=== PATIENT | female | born 1975 | race Caucasian/White ===

== ENCOUNTER 2018-06-22 15:41 | Emergency (ER) | payer BC, MEDICARE ==
[~2018-06-22] VITALS: Ht 172.7 cm; Wt 133.8 kg
[~2018-06-22 15:41] MED LIST: ADVAIR 250-501 EACH; AZITHROMYCIN250 MG PO; HYDROXYZINE HCL10 MG; HYDROXYZINE HCL10 MG PO; LAMICTAL150 MG PO; LAMICTAL200 MG PO; LATUDA20 MG PO; LATUDA40 MG PO; NASONEX17 GM; PROAIR HFA INH8.5 GM; PROAIR HFA INH8.5 GM INH; SEROQUEL100 MG; SYNTHROID175 MCG PO; SYNTHROID300 MCG PO
[2018-06-22] MEDS ORDERED: KETOROLAC TROMETHAMINE 60 MG/2 ML VIAL IM ONE (16:15)
--- NOTE | 2018-06-22 16:28 | Diagnostic Imaging Report ---
EXAM: KNEE 3VW RT - HOPD DATE: 06/22/2018 12:00 AM INDICATION: Knee pain without trauma COMPARISON: None FINDINGS: Minimal degenerative changes are present. No acute fracture or subluxation is identified. The joint spaces are maintained. Small joint effusion is identified. IMPRESSION: Minimal degenerative change with small effusion. Signed by: Dr. Darian Maher MD on 06/22/2018 4:25 PM
[2018-06-22 16:49] VITALS: BP 110/88
== END 2018-06-22 16:40 | disposition home or self-care (01) ==
LOC: FSED 15:41
DX: S83.411A Sprain of medial collateral ligament of right knee, initial encounter (principal); X50.1XXA Overexertion from prolonged static or awkward postures, initial encounter; Y93.9 Activity, unspecified; Y92.019 Unspecified place in single-family (private) house as the place of occurrence of the external cause
CPT/HCPCS: 73562; 99283; J1885

== ENCOUNTER 2018-07-06 09:24 | Emergency (ER) | payer BC ==
[~2018-07-06] VITALS: Ht 172.7 cm; Wt 133.8 kg
--- OUTSIDE RECORDS SUMMARY | 2018-07-06 09:26 | XMS REPORT ---
Author Author [facility] Address Unknown Phone Unavailable Care Team Providers Care Quarter Seamer Name Role Phone Morro GRAHAM Unavailable Unavailable Problems This patient has no known problems. Allergies, Adverse Reactions, Alerts This patient has no known allergies or adverse reactions. Medications This patient has no known medications. Encounters Start Date/Time End Date/Time Encounter Type Admission Type Attending Clinicians Care Facility Care Department Encounter ID 2017-07-27 10:39:18 2017-07-27 10:39:18 Outpatient [facility] [id number] 2017-06-25 00:00:00 2017-06-25 00:00:00 Outpatient [facility] [id number] 2017-04-27 15:15:41 2017-04-27 15:15:41 Emergency [facility] [id number] 2017-04-22 08:01:27 2017-04-22 08:01:27 Outpatient [facility] [id number] 2017-04-07 08:27:05 2017-04-07 08:27:05 Outpatient [facility] [id number] 2017-04-01 09:51:06 2017-04-01 09:51:06 Outpatient [facility] [id number] 2017-03-19 00:00:00 2017-03-19 00:00:00 Outpatient [facility] [id number] 2017-03-17 12:55:03 2017-03-17 12:55:03 Outpatient [facility] [id number] 2017-03-11 12:35:56 2017-03-11 12:35:56 Outpatient [facility] [id number] 2017-03-11 12:35:51 2017-03-11 12:35:51 Outpatient [facility] [id number] Results Test Description Test Time Test Comments Text Results Atomic Results Result Comments KNEE 3VW RT - HOPD 2018-06-22 16:24:00 [place] [id number] Patient Name: ULISSES DISLA MR #: [id number] : 1975 Age/Sex: 42/F Req #: [id number] [facility] Physician: Ordered by: HIRO GRAHAM MD Report #: [id number] Location: [facility] Room/Bed: Procedure: [id number] HOPD/KNEE 3VW RT - HOPD Exam Date: 06/22/18 Exam Time: 1624 REPORT STATUS: Signed EXAM: KNEE 3VW RT - HOPD DATE: 06/22/2018 12:00 AM INDICATION: Knee pain without trauma COMPARISON: None FINDINGS: Minimal degenerative changes are present. No acute fracture or subluxation is identified. The joint spaces are maintained. Small joint effusion is identified. IMPRESSION: Minimal degenerative change with small effusion. Signed by: Dr. Darian Rivera MD on 06/22/2018 4:25 PM Dictated By: DARIAN RIVERA MD 24 Transcribed By: MARIA VICTORIA on 06/22/181624 COPY TO: HIRO GRAHAM MD
[2018-07-06] MEDS ORDERED: KETOROLAC TROMETHAMINE 60 MG/2 ML VIAL IM ONE (10:00)
[2018-07-06] MEDS ORDERED: ACETAMINOPHEN 325 MG TAB PO ONE (10:00)
[2018-07-06] MEDS ORDERED: ONDANSETRON HCL 4 MG ORAL DISINTEGRATING TAB PO ONE (10:00)
--- NOTE | 2018-07-06 11:21 | Diagnostic Imaging Report ---
Exam: Lumbar spine AP lateral History: Back pain Comparison: None. Findings: No fracture or malalignment. Degenerative disc disease L5-S1. Facet arthrosis L4-5 L5-S1. No abnormal soft tissue calcification or soft tissue defect. Impression: No acute osseous abnormality Signed by: Dr. Troy Hodges M.D. on 07/06/2018 11:18 AM
--- NOTE | 2018-07-06 12:05 | Diagnostic Imaging Report ---
PROCEDURE:SACRUM & COCCYX INDICATION:Pain; status post fall COMPARISON:None. FINDINGS:Angulation and deformity of the coccyx may be related to prior trauma. No definite acute abnormality is identified. CONCLUSION:Deformity of the coccyx. Enrique Quinteros D.O. Dictated by: Enrique Quinteros D.O. on 07/06/2018 at 12:13 Electronically approved by: Enrique Quinteros D.O. on 07/06/2018 at 12:13
[2018-07-06 12:21] VITALS: BP 130/82
== END 2018-07-06 12:26 | disposition home or self-care (01) ==
LOC: ER 09:24
DX: G89.11 Acute pain due to trauma (principal); S30.0XXA Contusion of lower back and pelvis, initial encounter; W18.2XXA Fall in (into) shower or empty bathtub, initial encounter; Y93.E1 Activity, personal bathing and showering; Y92.002 Bathroom of unspecified non-institutional (private) residence as the place of occurrence of the external cause; I10 Essential (primary) hypertension; F17.210 Nicotine dependence, cigarettes, uncomplicated
CPT/HCPCS: 72100; 72220; 99283; J1885

== ENCOUNTER 2019-01-26 09:41 | Emergency (ER) | payer BC ==
[~2019-01-26] VITALS: Ht 172.7 cm; Wt 161.9 kg
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
[2019-01-26] MEDS ORDERED: ALBUTEROL/IPRATROPIUM 3 ML NEB ONE (10:24)
[2019-01-26] MEDS ORDERED: ALBUTEROL/IPRATROPIUM 3 ML NEB NEB ONE (10:30)
--- NOTE | 2019-01-26 10:43 | Diagnostic Imaging Report ---
Examination: Single AP view of the chest. COMPARISON: None. INDICATION: Cough, vomiting DISCUSSION: Lungs are well-inflated and without focal consolidation, pleural effusion, or pneumothorax. Cardiomediastinal contour and pulmonary vasculature are within normal limits for portable, AP technique. No acute osseous abnormality. IMPRESSION: 1. No acute cardiopulmonary abnormalities. Signed by: Dr. Kendrick Duran M.D. on 01/26/2019 10:40 AM
[2019-01-26 11:18] VITALS: BP 121/88
== END 2019-01-26 11:26 | disposition home or self-care (01) ==
LOC: FSED 09:41
DX: R05 Cough (principal); B34.9 Viral infection, unspecified
CPT/HCPCS: 71045; 87400; 99283

== ENCOUNTER 2020-11-26 19:54 | Emergency (ER) | payer BC ==
[~2020-11-26] VITALS: Ht 172.7 cm; Wt 161.9 kg
== END 2020-11-26 21:08 | disposition home or self-care (01) ==
LOC: ER 20:59
DX: R21 Rash and other nonspecific skin eruption (principal); E03.9 Hypothyroidism, unspecified; J45.909 Unspecified asthma, uncomplicated; F31.9 Bipolar disorder, unspecified; G47.30 Sleep apnea, unspecified; Z85.41 Personal history of malignant neoplasm of cervix uteri
CPT/HCPCS: 99282

== ENCOUNTER 2021-10-29 17:27 | Emergency (ER) | payer BC ==
[~2021-10-29] VITALS: Ht 172.7 cm; Wt 161.9 kg
[2021-10-29] MEDS ORDERED: ACETAMINOPHEN 325 MG TAB PO ONE (18:00)
== END 2021-10-29 19:15 | disposition home or self-care (01) ==
LOC: ER 17:36
DX: U07.1 COVID-19 (principal); R50.9 Fever, unspecified; R05.9 Cough, unspecified; E03.9 Hypothyroidism, unspecified; J45.909 Unspecified asthma, uncomplicated; G47.30 Sleep apnea, unspecified; F31.9 Bipolar disorder, unspecified; Z85.41 Personal history of malignant neoplasm of cervix uteri
CPT/HCPCS: 71045; 99283; U0002

== ENCOUNTER 2022-01-20 07:21 | Emergency (ER) | payer BC ==
[~2022-01-20] VITALS: Ht 172.7 cm; Wt 159.2 kg
[2022-01-20] MEDS ORDERED: KETOROLAC TROMETHAMINE 60 MG/2 ML VIAL IM ONE (08:30)
[2022-01-20] MEDS ORDERED: KETOROLAC TROMETHAMINE 60 MG/2 ML VIAL ONE (09:08)
[2022-01-20] MEDS ORDERED: PREDNISONE20 MG PO (09:58)
[2022-01-20] MEDS ORDERED: ULTRAM 50MG50 MG PO (10:03)
== END 2022-01-20 10:31 | disposition home or self-care (01) ==
LOC: FSED 08:13
DX: M25.561 Pain in right knee (principal); M17.11 Unilateral primary osteoarthritis, right knee; M25.551 Pain in right hip; E03.9 Hypothyroidism, unspecified; E66.01 Morbid (severe) obesity due to excess calories; F31.9 Bipolar disorder, unspecified
CPT/HCPCS: 73502; 73562; 99282; J1885

== ENCOUNTER 2023-02-05 21:59 | Emergency (ER) | payer BC ==
[~2023-02-05] VITALS: Ht 172.7 cm; Wt 159.2 kg
[~2023-02-05 21:59] MED LIST changes: +PREDNISONE20 MG PO; +ULTRAM 50MG50 MG PO
[2023-02-05 22:30] VITALS: O2SAT 100
[2023-02-05] MEDS ORDERED: DIPHENHYDRAMINE HCL 25 MG CAP PO ONE (23:00)
[2023-02-05] MEDS ORDERED: DIPHENHYDRAMINE HCL 25 MG CAP ONE ×2 (23:06→23:07)
== END 2023-02-05 23:30 | disposition home or self-care (01) ==
LOC: FSED 22:23
DX: S80.862A Insect bite (nonvenomous), left lower leg, initial encounter (principal); S80.861A Insect bite (nonvenomous), right lower leg, initial encounter; R21 Rash and other nonspecific skin eruption; J44.9 Chronic obstructive pulmonary disease, unspecified; E03.9 Hypothyroidism, unspecified; F31.9 Bipolar disorder, unspecified; W57.XXXA Bitten or stung by nonvenomous insect and other nonvenomous arthropods, initial encounter; Z79.899 Other long term (current) drug therapy
CPT/HCPCS: 99282

== ENCOUNTER 2023-09-28 14:21 | Emergency (ER) | payer BC ==
[~2023-09-28] VITALS: Ht 172.7 cm; Wt 164.2 kg
[2023-09-28 14:21] VITALS: O2SAT 100
[2023-09-28] MEDS ORDERED: IBUPROFEN 600 MG TAB PO STA (14:35)
[2023-09-28] MEDS ORDERED: IBUPROFEN 600 MG TAB ONE (14:41)
[2023-09-28] MEDS ORDERED: IBUPROFEN600 MG PO (15:12)
== END 2023-09-28 15:20 | disposition home or self-care (01) ==
LOC: FSED 14:25
DX: M79.671 Pain in right foot (principal); S93.691A Other sprain of right foot, initial encounter; E03.9 Hypothyroidism, unspecified; F31.9 Bipolar disorder, unspecified; F43.10 Post-traumatic stress disorder, unspecified; F17.210 Nicotine dependence, cigarettes, uncomplicated
CPT/HCPCS: 99283

== ENCOUNTER 2024-07-23 10:20 | Emergency (ER) | payer BC ==
[~2024-07-23] VITALS: Ht 172.7 cm; Wt 148.8 kg
[~2024-07-23 10:20] MED LIST changes: +IBUPROFEN600 MG PO
[2024-07-23] MEDS ORDERED: SEROQUEL100 MG PO (11:17)
[2024-07-23] MEDS ORDERED: VRAYLAR6 MG (11:17)
[2024-07-23 11:35] VITALS: PULSE 71; RESP 18; TEMP 97.7; O2SAT 95
== END 2024-07-23 11:35 | disposition home or self-care (01) ==
LOC: FSED 10:40
DX: J02.9 Acute pharyngitis, unspecified (principal); E03.9 Hypothyroidism, unspecified; F41.9 Anxiety disorder, unspecified; F43.10 Post-traumatic stress disorder, unspecified; F31.9 Bipolar disorder, unspecified; Z98.84 Bariatric surgery status
CPT/HCPCS: 83518; 99283